=== PATIENT | female | born 1965 | race Caucasian/White ===

== ENCOUNTER 2022-10-16 03:49 | Inpatient (IN) | payer OTHER ==
[2022-11-26] MEDS ORDERED: Bupivacaine 0.5% 50 ML MDV ONE (07:07)
[2022-11-26] MEDS ORDERED: Meropenem 500 MG SDV ONE (07:07)
[2022-11-26] MEDS ORDERED: Lidocaine 1% with EPINEPHrine 1:100,000 50 ML MDV ONE (07:07)
[2022-11-26] MEDS ORDERED: Succinylcholine 200 MG/10 ML MDV ONE (07:52)
[2022-11-26] MEDS ORDERED: Neostigmine Methylsulfate 1 MG/ML 5 ML Syringe ONE (07:52)
[2022-11-26] MEDS ORDERED: Ondansetron 4 MG/2 ML SDV ONE (07:52)
[2022-11-26] MEDS ORDERED: Glycopyrrolate 0.2 MG/ML 5 ML MDV ONE (07:52)
[2022-11-26] MEDS ORDERED: Rocuronium 50 MG/5 ML Vial ONE (07:52)
[2022-11-26] MEDS ORDERED: Dexamethasone 4 MG/ML SDV ONE (07:52)
[2022-11-26] MEDS ORDERED: Propofol 200 MG/20 ML SDV ONE (07:52)
[2022-11-26] MEDS ORDERED: Scopolamine 1.5 MG Transdermal Patch TRDERM ONE (09:00)
[2022-11-26] MEDS ORDERED: Celecoxib 200 MG Cap PO ONE (09:00)
[2022-11-26] MEDS ORDERED: Dextrose 5%-Lactated Ringers 1,000 ML IV SCH (09:30)
[2022-11-26 09:42] LABS: HEMATOCRIT 36.2 % (34.3-46.0); HEMOGLOBIN 11.6 g/dL (11.2-15.5); MEAN CORPUSCULAR HEMOGLOBIN 27.2 pg (31.6-35.5); MEAN CORPUSCULAR VOLUME 84.8 fL (81.4-99.0); RED BLOOD CELL COUNT 4.27 M/uL (3.77-5.24); WHITE BLOOD CELL COUNT,WBC 5.5 K/uL (3.2-11.0)
[2022-11-26] MEDS ORDERED: Albuterol/Ipratropium 3.0-0.5 MG/3 ML Neb Soln NEB ONE (10:00)
[2022-11-26 10:25] LABS: A/G RATIO 1.1 (1.2-2.2); ALANINE AMINOTRANSFERASE,ALT 19 U/L (12-78); ALKALINE PHOSPHATASE 80 U/L (46-116); ASPARTATE AMNIOTRANSFERASE,AST 16 U/L (15-37); BILIRUBIN TOTAL 0.3 mg/dL (0.2-1.0); BLOOD UREA NITROGEN,BUN 7 mg/dL (7-18); CALCIUM 8.8 mg/dL (8.5-10.1); CARBON DIOXIDE,CO2 25 mmol/L (21-32); CHLORIDE,CL 105 mmol/L (100-108); CREATININE 0.7 mg/dL (0.6-1.0); EST CRCL DRUG DOSING (CG) 62.16 mL/min; ESTIMATED GFR 100 mL/min (>60); FERRITIN 132 ng/ml (8-388); GLUCOSE RANDOM 82 mg/dL (74-106); MAGNESIUM 2.2 mg/dL (1.8-2.4); PHOSPHORUS 4.5 mg/dL (2.5-4.9); POTASSIUM,K 3.5 mmol/L (3.6-5.2); PROTEIN TOTAL,TP 7.6 g/dL (6.4-8.2); SODIUM,NA 140 mmol/L (140-148)
[2022-11-26 10:28] LABS: ANION GAP 13.5 mmol/L (5.0-14.0)
[2022-11-26] MEDS ORDERED: Ketamine 15 MG in Sodium Chloride 0.9% 19.85 ML IV SCH (10:30)
[2022-11-26] MEDS ORDERED: Ketamine 500 MG/5 ML MDV IV SCH (10:30)
[2022-11-26] MEDS ORDERED: cefOXitin 2 GM in Sodium Chloride 0.9% 50 ML IV ONE (10:30)
[2022-11-26] MEDS ORDERED: Ondansetron 4 MG/2 ML SDV IVPUSH PRN (10:49)
[2022-11-26] MEDS ORDERED: Naloxone 0.4 MG/ML SDV IVPUSH PRN (10:49)
[2022-11-26] MEDS ORDERED: diphenhydrAMINE 25 MG Cap PO PRN (10:49)
[2022-11-26] MEDS ORDERED: diphenhydrAMINE 50 MG/ML SDV IVPUSH PRN ×2 (10:49→16:00)
[2022-11-26] MEDS ORDERED: Naloxone 0.4 MG/ML SDV IV PRN (11:00)
[2022-11-26] MEDS ORDERED: fentaNYL 250 MCG/5 ML SDV ONE ×2 (11:32→13:25)
[2022-11-26] MEDS: HYDROmorphone/Normal Saline 6 MG/30 ML PCA Vial IV PRN (11:33)
[2022-11-26] MEDS ORDERED: Labetalol 20 MG/4 ML Syringe ONE (14:13)
[2022-11-26] MEDS ORDERED: Lactated Ringers 1,000 ML ONE (14:30)
[2022-11-26] MEDS ORDERED: Cyclobenzaprine 10 MG Tab PO PRN (15:49)
[2022-11-26] MEDS ORDERED: Labetalol 20 MG/4 ML Syringe IVPUSH PRN (16:00)
[2022-11-26] MEDS ORDERED: Albuterol/Ipratropium 3.0-0.5 MG/3 ML Neb Soln INH PRN (16:00)
[2022-11-26] MEDS ORDERED: Acetaminophen 500 MG Tab PO PRN (16:00)
[2022-11-26] MEDS ORDERED: Metoclopramide 10 MG/2 ML SDV IVPUSH PRN (16:00)
[2022-11-26] MEDS: cefOXitin 2 GM in Sodium Chloride 0.9% 50 ML IV SCH (17:27)
[2022-11-26] MEDS: Pantoprazole 40 MG Vial IVPUSH SCH (17:29)
[2022-11-26] MEDS: MVI, Adult with Vitamin K 10 ML, Thiamine 200 MG, Zinc/Copper/Manganese/Selenium 1 ML i... IV SCH ×4 (18:48)
[2022-11-26] MEDS: hydrOXYzine HCl 50 MG/ML SDV IM PRN (19:40)
[2022-11-26] MEDS: Acetaminophen 500 MG Tab PO SCH (20:34)
[2022-11-26] MEDS: Topiramate 25 MG Tab PO SCH (20:35)
[2022-11-26] MEDS: Albuterol/Ipratropium 3.0-0.5 MG/3 ML Neb Soln INH SCH (20:35)
[2022-11-26] MEDS: Heparin Sodium 5,000 Units/ML Vial SUBCUT SCH (20:35)
[2022-11-26] MEDS: Topiramate 100 MG Tab PO SCH (20:35)
[2022-11-27] MEDS: Dextrose 5%-Lactated Ringers 1,000 ML IV SCH ×2 (00:06→06:51)
[2022-11-27] MEDS: cefOXitin 2 GM in Sodium Chloride 0.9% 50 ML IV SCH ×5 (00:06→23:44)
[2022-11-27] MEDS: Ondansetron 4 MG/2 ML SDV IVPUSH PRN ×2 (01:05→05:17)
[2022-11-27] MEDS: hydrOXYzine HCl 50 MG/ML SDV IM PRN (01:21)
[2022-11-27] MEDS ORDERED: Iopamidol 612 MG/ML 30 ML SDV PO ONE (03:59)
[2022-11-27] MEDS: Acetaminophen 500 MG Tab PO SCH ×3 (05:08→20:09)
[2022-11-27] MEDS ORDERED: Dextrose 5%-Lactated Ringers 1,000 ML IV SCH (07:15)
[2022-11-27] MEDS: Albuterol/Ipratropium 3.0-0.5 MG/3 ML Neb Soln INH SCH ×4 (08:46→20:06)
[2022-11-27] MEDS: Celecoxib 200 MG Cap PO SCH ×2 (09:01→20:06)
[2022-11-27] MEDS: Topiramate 25 MG Tab PO SCH ×2 (09:02→20:09)
[2022-11-27] MEDS: Heparin Sodium 5,000 Units/ML Vial SUBCUT SCH ×2 (09:02→20:06)
[2022-11-27] MEDS: SCOPOLAMINE PATCH CHECK TOP SCH (09:02)
[2022-11-27] MEDS: Topiramate 100 MG Tab PO SCH ×2 (09:03→20:09)
[2022-11-27] MEDS: HYDROmorphone/Normal Saline 6 MG/30 ML PCA Vial IV PRN (10:53)
[2022-11-27] MEDS: MVI, Adult with Vitamin K 10 ML, Thiamine 200 MG, Zinc/Copper/Manganese/Selenium 1 ML i... IV SCH ×4 (16:23)
[2022-11-27] MEDS: Pantoprazole 40 MG Vial IVPUSH SCH (17:05)
[2022-11-27] MEDS: Oxybutynin 5 MG Tab PO SCH (21:06)
[2022-11-28] MEDS: Acetaminophen 500 MG Tab PO SCH ×3 (05:13→20:44)
[2022-11-28] MEDS: Albuterol/Ipratropium 3.0-0.5 MG/3 ML Neb Soln INH SCH ×4 (07:15→20:38)
[2022-11-28 08:30] LABS: BASOPHILS ABSOLUTE AUTO 0.04 K/uL (0.00-0.10); BASOPHILS PERCENT AUTO 0.3 % (0.1-1.3); EOSINOPHILS ABSOLUTE AUTO 0.13 K/uL (0.00-0.40); HEMATOCRIT 33.3 % (34.3-46.0); HEMOGLOBIN 10.5 g/dL (11.2-15.5); IMMATURE GRAN ABSOLUTE AUTO 0.09 K/uL (0.00-0.23); IMMATURE GRAN PERCENT AUTO 0.7 % (0.0-0.7); LYMPHOCYTES ABSOLUTE AUTO 1.78 K/uL (0.8-3.3); LYMPHOCYTES PERCENT AUTO 13.3 % (11.4-47.7); MEAN CORPUSCULAR HEMOGLOBIN 27.4 pg (31.6-35.5); MEAN CORPUSCULAR HGB CONC 31.5 g/dL (31.6-35.5); MEAN CORPUSCULAR VOLUME 86.9 fL (81.4-99.0); MONOCYTES ABSOLUTE AUTO 0.86 K/uL (0.20-0.90); MONOCYTES PERCENT AUTO 6.4 % (3.3-12.6); NEUTROPHILS ABSOLUTE AUTO 10.47 K/uL (1.0-7.6); NEUTROPHILS PERCENT AUTO 78.3 % (40.0-78.1); PLATELET COUNT,PLT 304 K/uL (130-375); RED BLOOD CELL COUNT 3.83 M/uL (3.77-5.24); WHITE BLOOD CELL COUNT,WBC 13.4 K/uL (3.2-11.0)
[2022-11-28] MEDS ORDERED: Dextrose 5%-Lactated Ringers 1,000 ML IV SCH (08:30)
[2022-11-28] MEDS: HYDROmorphone 2 MG Tab PO PRN ×4 (08:55→21:38)
[2022-11-28] MEDS: Celecoxib 200 MG Cap PO SCH ×2 (08:55→20:39)
[2022-11-28] MEDS: Heparin Sodium 5,000 Units/ML Vial SUBCUT SCH ×2 (08:55→20:39)
[2022-11-28] MEDS: SCOPOLAMINE PATCH CHECK TOP SCH (08:55)
[2022-11-28] MEDS: Topiramate 25 MG Tab PO SCH ×2 (08:56→20:43)
[2022-11-28] MEDS: Oxybutynin 5 MG Tab PO SCH ×2 (08:56→20:40)
[2022-11-28] MEDS: Topiramate 100 MG Tab PO SCH ×2 (08:56→20:39)
[2022-11-28 08:57] LABS: ALANINE AMINOTRANSFERASE,ALT 47 U/L (12-78); ALBUMIN 3.2 g/dL (3.4-5.0); ALKALINE PHOSPHATASE 68 U/L (46-116); ASPARTATE AMNIOTRANSFERASE,AST 34 U/L (15-37); BILIRUBIN TOTAL 0.3 mg/dL (0.2-1.0); BLOOD UREA NITROGEN,BUN 11 mg/dL (7-18); CALCIUM 8.4 mg/dL (8.5-10.1); CARBON DIOXIDE,CO2 27 mmol/L (21-32); CHLORIDE,CL 105 mmol/L (100-108); CREATININE 0.7 mg/dL (0.6-1.0); EST CRCL DRUG DOSING (CG) 62.16 mL/min; ESTIMATED GFR 100 mL/min (>60); GLUCOSE RANDOM 88 mg/dL (74-106); MAGNESIUM 1.8 mg/dL (1.8-2.4); PHOSPHORUS 3.2 mg/dL (2.5-4.9); POTASSIUM,K 3.4 mmol/L (3.6-5.2); PRO B-TYPE NATRIUR PEPT,BNPPRO 261 pg/mL (5-125); PROTEIN TOTAL,TP 6.4 g/dL (6.4-8.2); SODIUM,NA 138 mmol/L (140-148)
[2022-11-28 08:58] LABS: ANION GAP 9.4 mmol/L (5.0-14.0)
[2022-11-28] MEDS ORDERED: Cyanocobalamin (Vitamin B12) 1,000 MCG/ML SDV IM ONE (09:00)
[2022-11-28] MEDS ORDERED: Potassium Phos in 0.9 % NaCl 15 MMOL in Premix Bag 1 BAG IV SCH ×2 (13:00)
[2022-11-29] MEDS: HYDROmorphone 2 MG Tab PO PRN ×5 (01:56→22:10)
[2022-11-29 05:14] LABS: CALCIUM 8.5 mg/dL (8.5-10.1); CREATININE 0.6 mg/dL (0.6-1.0); EST CRCL DRUG DOSING (CG) 72.52 mL/min; MAGNESIUM 1.9 mg/dL (1.8-2.4); PHOSPHORUS 4.5 mg/dL (2.5-4.9); POTASSIUM,K 3.8 mmol/L (3.6-5.2)
[2022-11-29 05:27] LABS: ANION GAP 12.8 mmol/L (5.0-14.0)
[2022-11-29] MEDS: Acetaminophen 500 MG Tab PO SCH ×3 (05:39→20:30)
[2022-11-29] MEDS: Albuterol/Ipratropium 3.0-0.5 MG/3 ML Neb Soln INH SCH ×4 (07:04→20:31)
[2022-11-29] MEDS: Heparin Sodium 5,000 Units/ML Vial SUBCUT SCH ×2 (08:02→20:31)
[2022-11-29] MEDS: Oxybutynin 5 MG Tab PO SCH ×2 (08:03→20:31)
[2022-11-29] MEDS: Topiramate 25 MG Tab PO SCH ×2 (08:03→20:30)
[2022-11-29] MEDS: Celecoxib 200 MG Cap PO SCH ×2 (08:03→20:30)
[2022-11-29] MEDS: Topiramate 100 MG Tab PO SCH ×2 (08:03→20:32)
[2022-11-29] MEDS ORDERED: Bisacodyl 10 MG Supp RECTAL ONE (09:30)
[2022-11-29] MEDS ORDERED: Magnesium Hydroxide 400 MG/5 ML Susp 30 ML Cup PO ONE (09:30)
[2022-11-29] MEDS ORDERED: Magnesium Hydroxide 400 MG/5 ML Susp 30 ML Cup PO PRN (15:30)
[2022-11-29] MEDS ORDERED: Bisacodyl 10 MG Supp RECTAL PRN (15:30)
[2022-11-29] MEDS: hydrOXYzine HCl 50 MG/ML SDV IM PRN (20:29)
[2022-11-29] MEDS ORDERED: Calcium Carbonate 500 MG Tab.Chew PO PRN (22:02)
[2022-11-30] MEDS: HYDROmorphone 2 MG Tab PO PRN ×3 (02:38→13:51)
[2022-11-30] MEDS: Acetaminophen 500 MG Tab PO SCH ×2 (05:37→13:50)
[2022-11-30] MEDS: Albuterol/Ipratropium 3.0-0.5 MG/3 ML Neb Soln INH SCH ×2 (07:22→10:32)
[2022-11-30] MEDS: Oxybutynin 5 MG Tab PO SCH (08:59)
[2022-11-30] MEDS: Topiramate 25 MG Tab PO SCH (08:59)
[2022-11-30] MEDS: Topiramate 100 MG Tab PO SCH (08:59)
[2022-11-30] MEDS: Celecoxib 200 MG Cap PO SCH (08:59)
[2022-11-30] MEDS: Heparin Sodium 5,000 Units/ML Vial SUBCUT SCH (08:59)
== END 2022-11-30 14:45 | disposition home or self-care (01) | DRG 328 ==
LOC: JP.SDSSCHI 11-26 09:05 → JP.MS 11-26 15:30 → JP.SDSSCHI 11-26 15:30 → UNDODISIN 11-30 14:45
PROVIDERS: ADMIT Surgery; ATTEND Surgery
PROC: 0BUT0JZ Supplement Diaphragm with Synthetic Substitute, Open Approach (ICD-10-PCS; principal; 2022-11-26)
PROC: 0FB20ZX Excision of Left Lobe Liver, Open Approach, Diagnostic (ICD-10-PCS; 2022-11-26)
PROC: 0DB80ZZ Excision of Small Intestine, Open Approach (ICD-10-PCS; 2022-11-26)
DX: K44.0 Diaphragmatic hernia with obstruction, without gangrene (principal); K21.9 Gastro-esophageal reflux disease without esophagitis; I25.2 Old myocardial infarction; E78.5 Hyperlipidemia, unspecified; I10 Essential (primary) hypertension; Z79.899 Other long term (current) drug therapy
CPT/HCPCS: 36415; 74240; 74240-26; 80048; 80053; 82728; 83735; 83880; 84100; 85025; 85027; 87493; 88307; 93005; 94640; A9270-GY; C9113; J0131; J0171; J0330; J0694; J1100; J1170; J1644; J2020; J2185; J2405; J2704; J2710; J2795; J3010; J3410; J3411; J3420; J3490; J7120; J7121; J7620; Q9967

== ENCOUNTER 2022-12-08 09:01 | Day surgery (SDC) | payer OTHER ==
[~2022-12-08 09:01] MED LIST: Cyanocobalamin (Vitamin B12) 1,000 MCG/ML SDV IM ONE; Lactated Ringers 1,000 ML IV SCH
[2022-12-08] MEDS ORDERED: Propofol 200 MG/20 ML SDV ONE (09:26)
[2022-12-08] MEDS ORDERED: Ondansetron 4 MG/2 ML SDV ONE (09:26)
[2022-12-08] MEDS ORDERED: Dexamethasone 4 MG/ML SDV ONE (09:26)
[2022-12-08] MEDS ORDERED: fentaNYL 100 MCG/2 ML SDV ONE (09:28)
[2022-12-08] MEDS ORDERED: MVI, Adult with Vitamin K 10 ML, Thiamine 200 MG, Zinc/Copper/Manganese/Selenium 1 ML i... IV ONE ×4 (10:00)
[2022-12-08] MEDS ORDERED: Glycopyrrolate 0.2 MG/ML 2 ML SDV IVPUSH ONE (10:00)
[2022-12-08] MEDS ORDERED: SIMETHICONE PO PRN ×2 (12:36)
[2022-12-08] MEDS ORDERED: MAGNESIUM HYDROXIDE PO PRN ×2 (12:36)
[2022-12-08] MEDS ORDERED: LIDOCAINE PO PRN ×2 (12:36)
[2022-12-08] MEDS ORDERED: ALUMINUM HYDROXIDE PO PRN ×2 (12:36)
== END 2022-12-08 13:35 | disposition home or self-care (01) ==
LOC: JP.SDS 09:01
PROVIDERS: ATTEND Surgery
DX: K22.2 Esophageal obstruction (principal); Z98.0 Intestinal bypass and anastomosis status
CPT/HCPCS: 43249; A9270; C1726; J1100; J2405; J2704; J3010; J3411; J3420; J3490; J7120

== ENCOUNTER 2023-01-05 08:40 | Day surgery (SDC) | payer OTHER ==
[~2023-01-05 08:40] MED LIST changes: +Bupivacaine 0.5% 50 ML MDV ONE; -Cyanocobalamin (Vitamin B12) 1,000 MCG/ML SDV IM ONE; +Dexamethasone 4 MG/ML SDV ONE; +Dextrose 5%-Lactated Ringers 1,000 ML IV SCH; +Glycopyrrolate 0.2 MG/ML 5 ML MDV ONE; -Lactated Ringers 1,000 ML IV SCH; +Lidocaine 1% with EPINEPHrine 1:100,000 50 ML MDV ONE; +Neostigmine Methylsulfate 1 MG/ML 5 ML Syringe ONE; +Ondansetron 4 MG/2 ML SDV ONE; +Propofol 200 MG/20 ML SDV ONE; +Rocuronium 50 MG/5 ML Vial ONE; +fentaNYL 250 MCG/5 ML SDV ONE
[2023-01-05] MEDS ORDERED: Dextrose 5%-Lactated Ringers 1,000 ML IV SCH (09:30)
[2023-01-05] MEDS ORDERED: Indocyanine Green 25 MG SDV IV ONE (09:30)
[2023-01-05] MEDS ORDERED: Albuterol/Ipratropium 3.0-0.5 MG/3 ML Neb Soln NEB ONE (10:00)
[2023-01-05] MEDS ORDERED: cefOXitin 2 GM in Sodium Chloride 0.9% 50 ML IV ONE (10:00)
[2023-01-05] MEDS ORDERED: Scopolamine 1.5 MG Transdermal Patch TOP ONE (10:00)
[2023-01-05] MEDS ORDERED: Ketamine 13 MG in Sodium Chloride 0.9% 19.87 ML IV SCH (10:15)
[2023-01-05] MEDS ORDERED: Ketamine 500 MG/5 ML MDV IV SCH (10:15)
[2023-01-05] MEDS ORDERED: Ropivacaine 23 ML, dexAMETHasone 8 MG, EPINEPHrine 0.4 MG, Sodium Chloride 0.9% 54.6 ML NERVRT SCH ×4 (10:15)
[2023-01-05] MEDS ORDERED: fentaNYL 250 MCG/5 ML SDV ONE (11:10)
[2023-01-05] MEDS ORDERED: Labetalol 20 MG/4 ML Syringe ONE (11:25)
[2023-01-05] MEDS ORDERED: Lactated Ringers 1,000 ML ONE (12:02)
[2023-01-05] MEDS ORDERED: HYDROmorphone 2 MG Tab PO PRN (13:16)
[2023-01-05] MEDS ORDERED: Ondansetron 4 MG/2 ML SDV IVPUSH PRN (16:15)
== END 2023-01-05 17:00 | disposition home or self-care (01) ==
LOC: JP.SDS 08:40
PROVIDERS: ATTEND Surgery
DX: K81.1 Chronic cholecystitis (principal); K82.8 Other specified diseases of gallbladder; K22.2 Esophageal obstruction; I11.0 Hypertensive heart disease with heart failure; I50.9 Heart failure, unspecified; E87.6 Hypokalemia; D50.9 Iron deficiency anemia, unspecified; E55.9 Vitamin D deficiency, unspecified; F43.20 Adjustment disorder, unspecified; F39 Unspecified mood [affective] disorder; G47.00 Insomnia, unspecified; K21.9 Gastro-esophageal reflux disease without esophagitis; F17.210 Nicotine dependence, cigarettes, uncomplicated; E66.9 Obesity, unspecified; Z68.20 Body mass index [BMI] 20.0-20.9, adult; Z98.84 Bariatric surgery status; Z98.890 Other specified postprocedural states; Z98.1 Arthrodesis status; Z79.899 Other long term (current) drug therapy; Z88.7 Allergy status to serum and vaccine; Z88.8 Allergy status to other drugs, medicaments and biological substances; Z88.5 Allergy status to narcotic agent
CPT/HCPCS: 43249; 47562; 88304; A9270; C1726; J0131; J0171; J0694; J1100; J2405; J2704; J2710; J2795; J3010; J3490; J7120; J7121; J7620

== ENCOUNTER 2023-01-20 09:25 | Day surgery (SDC) | payer OTHER ==
[2023-01-20] MEDS ORDERED: Midazolam 1 MG/ML 2 ML SDV ONE (10:00)
[2023-01-20] MEDS ORDERED: fentaNYL 50 MCG/ML SDV ONE (10:00)
[2023-01-20] MEDS ORDERED: Propofol 200 MG/20 ML SDV ONE (10:00)
[2023-01-20] MEDS ORDERED: Lactated Ringers 1,000 ML IV SCH (10:00)
[2023-01-20] MEDS ORDERED: MVI, Adult with Vitamin K 10 ML, Thiamine 200 MG, Chromium/Copper/Mang/Selen/Zn 1 ML in... IV ONE ×4 (11:00)
[2023-01-20] MEDS ORDERED: Cyanocobalamin (Vitamin B12) 1,000 MCG/ML SDV IM ONE (11:15)
== END 2023-01-20 13:40 | disposition home or self-care (01) ==
LOC: JP.SDS 09:25
PROVIDERS: ATTEND Surgery
DX: K94.23 Gastrostomy malfunction (principal); Z79.899 Other long term (current) drug therapy; Z88.5 Allergy status to narcotic agent; Z88.8 Allergy status to other drugs, medicaments and biological substances
CPT/HCPCS: 43245; 43247; C1726; C1773; J2250; J2704; J3010; J3411; J3420; J7120

== ENCOUNTER 2023-03-04 08:51 | Day surgery (SDC) | payer OTHER ==
[2023-03-04] MEDS ORDERED: Propofol 200 MG/20 ML SDV ONE (09:22)
[2023-03-04] MEDS ORDERED: Midazolam 1 MG/ML 2 ML SDV ONE (09:23)
[2023-03-04] MEDS ORDERED: fentaNYL 50 MCG/ML SDV ONE (09:23)
[2023-03-04] MEDS: Lactated Ringers 1,000 ML IV ONE ×2 (09:30→10:01)
[2023-03-04] MEDS ORDERED: Cyanocobalamin (Vitamin B12) 1,000 MCG/ML SDV IM ONE (09:30)
[2023-03-04] MEDS ORDERED: Scopolamine 1.5 MG Transdermal Patch TRDERM SCH (10:00)
[2023-03-04] MEDS ORDERED: Glycopyrrolate 0.2 MG/ML 2 ML SDV IVPUSH ONE (10:00)
[2023-03-04] MEDS ORDERED: MVI, Adult with Vitamin K 10 ML, Thiamine 200 MG, Zinc/Copper/Manganese/Selenium 1 ML i... IV ONE ×4 (10:30)
[2023-03-04] MEDS ORDERED: Dexamethasone 4 MG/ML SDV ONE (10:47)
[2023-03-04] MEDS ORDERED: Lactated Ringers 1,000 ML ONE (10:48)
[2023-03-04] MEDS ORDERED: Ketorolac 30 MG/ML SDV IM ONE (12:00)
== END 2023-03-04 13:45 | disposition home or self-care (01) ==
LOC: JP.SDS 08:51
PROVIDERS: ATTEND Surgery
DX: K91.89 Other postprocedural complications and disorders of digestive system (principal); K22.2 Esophageal obstruction; K90.9 Intestinal malabsorption, unspecified; Z98.0 Intestinal bypass and anastomosis status; K58.9 Irritable bowel syndrome, unspecified; Z88.7 Allergy status to serum and vaccine; Z88.5 Allergy status to narcotic agent; Z88.8 Allergy status to other drugs, medicaments and biological substances
CPT/HCPCS: 43249; A9270; C1726; J1100; J1885; J2250; J2704; J3010; J3411; J3420; J3490; J7120